=== PATIENT | female | born 1935 | race Caucasian/White ===

== ENCOUNTER 2016-09-13 21:16 | Emergency (ER) | payer BC, MEDICARE ==
[2016-09-13] MEDS ORDERED: ACETAMINOPHEN 325 MG TABLET ONE (22:15)
--- NOTE | 2016-09-14 08:12 | CT ---
HEAD CT WITHOUT CONTRAST HISTORY: Status post fall getting out of car, bruising above the right eye. No intravenous contrast administered. Contiguous axial images acquired from skull base to vertex. COMPARISON:None. BRAIN VOLUME: Moderate diffuse volume loss. VENTRICULAR SIZE: Moderate ventriculomegaly without gross hydrocephalus. FOCAL MASS EFFECT:None. ACUTE INTRACRANIAL HEMORRHAGE:None. INTRACRANIAL VASCULATURE: Mildly extensive calcifications. CALVARIUM:Grossly intact. Right frontal scalp soft tissue swelling. Right-sided supraorbital cutaneous lesion is suggested. VISIBLE PARANASAL SINUSES AND MASTOID AIR CELLS:Grossly clear. IMPRESSION: Evidence of right frontal scalp injury. No gross mass effect, depressed calvarial fracture, or acute intracranial hemorrhage. Preliminary report relayed to the Emergency Medicine medical service by Dr. Vivar on 09/13/2016 at 2301 hours.
== END 2016-09-14 00:05 | disposition home or self-care (01) ==
LOC: ED 21:16
DX: S09.90XA Unspecified injury of head, initial encounter (principal); W18.30XA Fall on same level, unspecified, initial encounter; Y93.02 Activity, running; Y92.9 Unspecified place or not applicable
CPT/HCPCS: 70450; 99283 ×2; A9270